=== PATIENT | female | born 1945 | race Caucasian/White ===

== ENCOUNTER 2017-04-06 12:01 | Inpatient (IN) | payer MEDICARE, MEDICAID ==
[~2017-04-06] VITALS: Ht 152.4 cm; Wt 49.1 kg
[2017-04-06] MEDS ORDERED: SODIUM CHLORIDE 0.9% 1,000 ML IV ONE (12:11)
[2017-04-06] MEDS ORDERED: SODIUM CHLORIDE FLUSH 10ML SYR IVF ONE (12:30)
[2017-04-06] MEDS ORDERED: ONDANSETRON 2MG/ML, 2ML IVPush ONE (12:30)
[2017-04-06 12:35] LABS: BLOOD UREA NITROGEN 12 mg/dL (7-18)
[2017-04-06] MEDS ORDERED: HYDROmorphone 1 MG/ML, 1ML ONE (12:40)
[2017-04-06] MEDS ORDERED: ONDANSETRON 2MG/ML, 2ML ONE (12:40)
[2017-04-06 12:42] LABS: HEMATOCRIT 37.8 % (34.6-47.8); HEMOGLOBIN 12.6 g/dL (11.7-16.4)
[2017-04-06] MEDS: HYDROmorphone 1 MG/ML, 1ML IVPush PRN ×2 (12:45→14:41)
[2017-04-06] MEDS ORDERED: ATEN25TA PO (14:44)
[2017-04-06] MEDS ORDERED: MONT10TA9 PO (14:46)
[2017-04-06] MEDS ORDERED: FLUT50DI INH (14:46)
[2017-04-06] MEDS ORDERED: TIOT18CA INH (14:47)
[2017-04-06] MEDS ORDERED: ALBU8.5H8 INH (14:47)
[2017-04-06] MEDS ORDERED: TRAZ150T62 PO (14:49)
[2017-04-06] MEDS ORDERED: GABA300C10 PO (14:49)
[2017-04-06] MEDS ORDERED: OXCA600T3 PO (14:50)
[2017-04-06] MEDS ORDERED: LORA0.5T PO (14:50)
[2017-04-06] MEDS ORDERED: SERT100T PO (14:51)
[2017-04-06 15:32] VITALS: BP 147/75
[2017-04-06] MEDS: KETOROLAC 30 MG/1 ML IVPush SCH ×2 (16:30→18:32)
[2017-04-06] MEDS ORDERED: ONDANSETRON 2MG/ML, 2ML IVPush PRN (16:30)
[2017-04-06] MEDS ORDERED: ACETAMINOPHEN 325 MG TABLET PO PRN (16:30)
[2017-04-06] MEDS: HYDROcodone/APAP 10/325 MG TABLET PO PRN (18:32)
[2017-04-06 19:46] VITALS: BP 114/63
[2017-04-06] MEDS: FAMOTIDINE 20 MG TABLET PO SCH (20:09)
[2017-04-06] MEDS: MONTELUKAST 10 MG TABLET PO SCH (20:09)
[2017-04-06] MEDS: OXCARBAZEPINE 150 MG TABLET PO SCH (20:09)
[2017-04-06] MEDS: TRAZODONE 150MG TABLET PO SCH (20:10)
[2017-04-07] MEDS: HYDROcodone/APAP 10/325 MG TABLET PO PRN ×4 (00:47→20:12)
[2017-04-07 03:47] VITALS: BP 118/68
[2017-04-07 06:39] VITALS: BP 117/59
[2017-04-07] MEDS: ATENOLOL 50 MG TABLET PO SCH (08:12)
[2017-04-07] MEDS: SERTRALINE 100MG TABLET PO SCH (08:13)
[2017-04-07] MEDS: GABAPENTIN 300 MG CAPSULE PO SCH (08:13)
[2017-04-07] MEDS: OXCARBAZEPINE 150 MG TABLET PO SCH ×2 (08:13→20:12)
[2017-04-07] MEDS: FAMOTIDINE 20 MG TABLET PO SCH ×2 (08:13→20:12)
[2017-04-07] MEDS: TRAZODONE 150MG TABLET PO SCH ×2 (08:14→20:12)
[2017-04-07] MEDS: FLUTICASONE PROPIONATE 50 MCG INH SCH (09:00)
[2017-04-07] MEDS ORDERED: ATENOLOL 25 MG TABLET PO SCH (09:00)
[2017-04-07] MEDS: (Tiotropium Bromide** (Spiriva**) 18 MCG) INH SCH (09:00)
[2017-04-07] MEDS ORDERED: ROCURONIUM 10 MG/ML ONE (10:23)
[2017-04-07] MEDS ORDERED: PROPOFOL 10 MG/ML, 20ML ONE (10:23)
[2017-04-07] MEDS ORDERED: ONDANSETRON 2MG/ML, 2ML ONE (10:23)
[2017-04-07] MEDS ORDERED: CEFAZOLIN 1,000 MG ONE (10:23)
[2017-04-07] MEDS ORDERED: DEXAMETHASONE 4 MG/ML, 1ML ONE (10:23)
[2017-04-07] MEDS ORDERED: morphine SULFATE 10 MG/ML, 1ML IVPush PRN (13:00)
[2017-04-07 13:10] VITALS: BP 104/64
[2017-04-07 13:40] VITALS: BP 106/61
[2017-04-07] MEDS ORDERED: MIDAZOLAM 1 MG/ML, 2ML ONE (15:22)
[2017-04-07] MEDS ORDERED: FENTANYL PF 250 MCG/5ML ONE (15:22)
[2017-04-07] MEDS ORDERED: FENTANYL PF 100 MCG/2ML ONE (15:22)
[2017-04-07] MEDS ORDERED: BUPIVACAINE/PF 0.25% ONE ×2 (15:26)
[2017-04-07] MEDS ORDERED: NEOSPORIN OINT, 15GM ONE (17:31)
[2017-04-07] MEDS ORDERED: OXYcodone 5 MG/5 ML ORAL.SOL UDC PO PRN (18:00)
[2017-04-07] MEDS ORDERED: MEPERIDINE/PF 25MG/0.5ML IVPush PRN (18:00)
[2017-04-07] MEDS ORDERED: PROMETHAZINE 25 MG/ML, 1ML IV PRN (18:00)
[2017-04-07] MEDS ORDERED: HYDROmorphone 1 MG/ML, 1ML IV PRN (18:00)
[2017-04-07] MEDS ORDERED: ACETAMINOPHEN 325 MG TABLET PO PRN (18:00)
[2017-04-07] MEDS ORDERED: ONDANSETRON 2MG/ML, 2ML IVPush PRN (18:00)
[2017-04-07] MEDS ORDERED: FENTANYL PF 100 MCG/2ML IV PRN (18:00)
[2017-04-07] MEDS ORDERED: HYDROcodone/APAP 7.5-325MG/15ML UDC PO PRN (18:00)
[2017-04-07 18:45] VITALS: BP 107/64
[2017-04-07] MEDS: MONTELUKAST 10 MG TABLET PO SCH (20:12)
[2017-04-07 23:59] VITALS: BP 111/74
[2017-04-08] MEDS: HYDROcodone/APAP 10/325 MG TABLET PO PRN ×3 (02:33→15:16)
[2017-04-08 03:01] VITALS: BP 118/75
[2017-04-08 07:01] VITALS: BP 114/65
[2017-04-08 08:00] VITALS: BP 118/61
[2017-04-08] MEDS: ATENOLOL 50 MG TABLET PO SCH (08:56)
[2017-04-08] MEDS: OXCARBAZEPINE 150 MG TABLET PO SCH ×2 (08:57→20:34)
[2017-04-08] MEDS: SERTRALINE 100MG TABLET PO SCH (08:58)
[2017-04-08] MEDS: FAMOTIDINE 20 MG TABLET PO SCH ×2 (08:58→20:34)
[2017-04-08] MEDS: GABAPENTIN 300 MG CAPSULE PO SCH (08:59)
[2017-04-08] MEDS: TRAZODONE 150MG TABLET PO SCH ×3 (08:59→20:34)
[2017-04-08] MEDS ORDERED: ALBUTEROL/IPRATROPIUM 2.5MG/0.5MG, 3 ML NPPB PRN (09:00)
[2017-04-08] MEDS ORDERED: ALUMINUM/MAG/SIMETHICONE 30 ML UDC PO PRN (09:00)
[2017-04-08] MEDS: FLUTICASONE PROPIONATE 50 MCG INH SCH (09:04)
[2017-04-08] MEDS: (Tiotropium Bromide** (Spiriva**) 18 MCG) INH SCH (09:05)
[2017-04-08] MEDS: LORazepam 0.5MG TABLET PO PRN ×2 (11:35→15:45)
[2017-04-08] MEDS ORDERED: ASPIRIN 325 MG TABLET EC PO SCH (12:00)
[2017-04-08] MEDS ORDERED: ALBUTEROL SULFATE INH PRN (12:00)
[2017-04-08 12:48] VITALS: BP 112/68
[2017-04-08] MEDS ORDERED: ASPI-650 PO (12:59)
[2017-04-08] MEDS ORDERED: HYDROcodone/APAP 10/325 MG TABLET PO PRN (16:30)
[2017-04-08] MEDS: ALBUTEROL/IPRATROPIUM 2.5MG/0.5MG, 3 ML NPPB SCH (19:10)
[2017-04-08 19:23] VITALS: BP 121/66
[2017-04-08] MEDS: MONTELUKAST 10 MG TABLET PO SCH (20:34)
[2017-04-09] MEDS: HYDROcodone/APAP 10/325 MG TABLET PO PRN ×3 (01:32→15:15)
[2017-04-09 02:25] VITALS: BP 122/66
[2017-04-09 06:41] LABS: HEMATOCRIT 31.9 % (34.6-47.8); HEMOGLOBIN 10.8 g/dL (11.7-16.4); WHITE BLOOD COUNT 5.7 x10^3/uL (3.4-10)
[2017-04-09 06:53] LABS: BLOOD UREA NITROGEN 9 mg/dL (7-18)
[2017-04-09 07:17] VITALS: BP 107/63
[2017-04-09] MEDS: ALBUTEROL/IPRATROPIUM 2.5MG/0.5MG, 3 ML NPPB SCH (07:26)
[2017-04-09] MEDS ORDERED: LORazepam 1MG TABLET ONE ×2 (08:34→15:55)
[2017-04-09] MEDS: LORazepam 0.5MG TABLET PO PRN ×2 (08:40→15:58)
[2017-04-09] MEDS: (Tiotropium Bromide** (Spiriva**) 18 MCG) INH SCH (08:41)
[2017-04-09] MEDS: FLUTICASONE PROPIONATE 50 MCG INH SCH (08:41)
[2017-04-09] MEDS: TRAZODONE 150MG TABLET PO SCH (09:00)
[2017-04-09] MEDS: ATENOLOL 50 MG TABLET PO SCH (09:00)
[2017-04-09] MEDS: GABAPENTIN 300 MG CAPSULE PO SCH (09:03)
[2017-04-09] MEDS: OXCARBAZEPINE 150 MG TABLET PO SCH (09:05)
[2017-04-09] MEDS: FAMOTIDINE 20 MG TABLET PO SCH (09:05)
[2017-04-09] MEDS: SERTRALINE 100MG TABLET PO SCH (09:07)
[2017-04-09] MEDS ORDERED: HYDR-3307 PO (10:19)
[2017-04-09 14:00] VITALS: BP 119/66
== END 2017-04-09 16:40 | DRG 493 ==
LOC: ED 14:13 → EDIP 14:14 → ED 14:26 → 4NOR 15:21
PROVIDERS: ADMIT Hospitalist; ATTEND Hospitalist
PROC: 0QSK04Z Reposition Left Fibula with Internal Fixation Device, Open Approach (ICD-10-PCS; principal; 2017-04-06)
PROC: 0QSH04Z Reposition Left Tibia with Internal Fixation Device, Open Approach (ICD-10-PCS; 2017-04-06)
DX: S82.852A Displaced trimalleolar fracture of left lower leg, initial encounter for closed fracture (principal); G25.9 Extrapyramidal and movement disorder, unspecified; J44.9 Chronic obstructive pulmonary disease, unspecified; W18.30XA Fall on same level, unspecified, initial encounter; F12.90 Cannabis use, unspecified, uncomplicated; F31.9 Bipolar disorder, unspecified; F41.1 Generalized anxiety disorder; G89.11 Acute pain due to trauma; I10 Essential (primary) hypertension; K58.9 Irritable bowel syndrome, unspecified; M19.90 Unspecified osteoarthritis, unspecified site; M85.80 Other specified disorders of bone density and structure, unspecified site; R09.02 Hypoxemia; Y92.481 Parking lot as the place of occurrence of the external cause; Y92.512 Supermarket, store or market as the place of occurrence of the external cause; Z87.891 Personal history of nicotine dependence; Y93.89 Activity, other specified; Y99.8 Other external cause status
CPT/HCPCS: 29515; 36415; 71010; 76001; 80048; 82040; 84443; 85025; 85610; 85730; 94640; 96374; C1713; J0690; J1100; J1170; J1885; J2250; J2405; J2704; J3010; J3490; J7620; J2270; J7030